=== PATIENT | female | born 1950 | race Caucasian/White ===

== ENCOUNTER → 2016-12-23 | Outpatient (CLI) | payer OTHER ==
[~2016-12-23] MED LIST: ACTOS PO; ADVAIR 5001 DISK W/D PO; ALLERGY10 MG; CAL; CARVEDILOL6.25 MG; COREG6.25 MG PO; FLEXERIL10 MG PO; FUROSEMIDE40 MG; GLUCOVANCE 5/501 TA1 PO; HUMALOG100 U/M2 SUBQ; HUMALOG100 U/ML SUBQ; JANUMET 50-1,1 UDTAB PO; KCL PO; LANTUS SOLOSTAR3 ML SUBQ; LASIX PO; LEVAQUIN PO; LEVEMIR FLEX PEN; LORTAB 5/500 TA1 TA1 PO; MEDROL4 MG/DOSE- PO; MELOXICAM15 MG; MULTI-VIT; NEURONTIN PO; NEURONTIN100 MG PO; OXAPROZIN600 MG PO; PREDNISONE PO; PRILOSEC20 MG PO; PROAIR ALBUTEROL; PROTONIX PO; REQUIP1 MG PO; SPIRIVA18 MCG INH; SYMBICORT INH; TRAZODONE PO; VIBRAMYCIN100 M1 PO; VIT D; ZESTORETIC 20/21 TAB PO; ZESTRIL40 MG PO; ZOCOR PO; ZOLOFT PO; ZOLOFT50 MG PO; [UNRECOGNIZED DRUG - OTHER]
--- NOTE | ~2016-12-23 | MY11 ---
[facility] A Service of [facility] RADIOLOGY TEXT RESULTS PATIENT: BRIANNA GATICA LOCATION: [facility] : 52 UNIT #: [id number] AGE: [address]: Linda Morocho MD SEX: F ORDER DR: [id number] [facility] [address] [place], [place] [address] [id number] O MR#: [id number] Acc #: [id number] NAME: BRIANNA GATICA : 1950 SEX: F STUDY DATE/TIME: 12/23/2016 15:23 UNIT: [facility] ROOM: STUDY DESCRIPTION: MY Mammogram Screening [place] Attending Physician: Linda Morocho M.D. Ordering Physician: Linda Morocho M.D. Primary Care Physician: Linda Morocho M.D. MEDICAL IMAGING REPORT This report is preliminary unless electronic signature is present EXAM Digital screening mammogram, 12/23/2016 HISTORY 66-year-old woman prior left lumpectomy with adjuvant therapy 2000. Annual screening. COMPARISON Mammograms date to 10/11/2007 with most recent screening comparison 10/15/2015. FINDINGS Digital imaging of each breast was completed utilizing screening protocol. Lumpectomy markers were placed on the left breast. Review includes FDA-approved CAD device. Breast parenchyma is fatty replaced. Stellate lumpectomy scar is again noted upper outer anterior third left breast. There are 2 foci of coarse calcification within the scar. Additional coarse calcification superior left breast is unchanged. There is no interval-occurring mass. I see no suspicious microcalcifications and the lumpectomy stellate scar appears stable. Mild postradiation skin thickening is present on the left. IMPRESSION Benign mammogram. Stable post lumpectomy findings left breast. Annual screening recommended. Patients over the age of 40 are entered into a reminder system with target due date for the next mammogram. A result letter will also be sent to the patient. BIRADS: 2 Benign finding [facility] A Service of [facility] RADIOLOGY TEXT RESULTS PATIENT: BRIANNA GATICA LOCATION: [facility] : 52 UNIT #: [id number] AGE: [address]: Linda Morocho MD SEX: F ORDER DR: Dictated by... Rafael Lawson M.D. THIS IS AN ELECTRONICALLY VERIFIED REPORT Rafael Lawson M.D. at 12/24/2016 8:02 AM LUISA/yakelin TD: 12/24/2016 03:36 JOB #: [id number] MEDICAL IMAGING REPORT COPY
== END | disposition home or self-care (01) ==
LOC: CWCC 14:41
DX: Z12.31 Encounter for screening mammogram for malignant neoplasm of breast (principal); Z85.3 Personal history of malignant neoplasm of breast; Z98.890 Other specified postprocedural states
CPT/HCPCS: G0202